=== PATIENT | female | born 2000 | race Caucasian/White ===

== ENCOUNTER 2022-08-07 06:43 | Emergency (ER) | payer OTHER, SELFPAY ==
[2022-08-07 06:55] VITALS: BP 155/84; PULSE 120; RESP 20; TEMP 37.3; O2SAT 96
--- NOTE | 2022-08-07 07:38 | ECG_ITS ---
Measurements Intervals [place] Rate: 124 P: 10 WA: 156 QRS: 9 QRSD: 90 T: 113 QT: 336 QTc: 484 Interpretive Statements SINUS TACHYCARDIA BORDERLINE ST-T WAVE ABNORMALITY- ANTEROLAT/HIGH LAT LEADS ABNORMAL ECG NO PREVIOUS ECG AVAILABLE FOR COMPARISON Electronically Signed On 08-07-2022 22:51:53 [employer]ITAL [employer] by Tomy Azul D.O.
--- NOTE | 2022-08-07 08:50 | ED.ARRPALP ---
HPI - Arrhythmia/Palpitations General Chief Complaint: Arrhythmia/Palpitations Stated Complaint: palpitations Time Seen by Provider: 08/07/22 08:39 History of Present Illness HPI narrative: Pt presents with intermittent palpitations and feeling like her heart is racing since las night. Pt has history of anxiety and has had similar issues in the past but worse last night. Pt off her anxiety meds because psychiatrist moved. Pt says has some intermittent chest aching that lasts a few seconds and resolves on own. Related Data Allergies Allergy/AdvReac Type Severity Reaction Status Date / Time No Known Allergies Allergy Unknown Unverified 01/26/21 08:13 tartar sauce Allergy Unknown Unknown Uncoded 01/26/21 08:13 Review of Systems Review of Systems: All systems reviewed & are unremarkable except as noted in HPI and below Exam Const: General: healthy appearing and no acute distress Nutritional Appearance: well nourished Orientation/consciousness: patient oriented x3 Limitations: no limitations HENMT: Head: normal to inspection Mouth: Yes Normal oral and palatal mucosa present Eyes: Conjunctivae: conjunctivae normal Neck: Neck: normal visual inspection and no lymphadenopathy Chest: Chest palpation & inspection: normal inspection of the chest Resp: Effort & Inspection: normal respiratory effort Auscultation: clear to auscultation bilaterally Cardio: Rate: tachycardic GI: Auscultation: normal bowel sounds Back/Spine/Pelvis: Back: no CVA tenderness Skin: General skin exam: normal color Rashes: no rashes Neuro: General: patient oriented x3 and moves all extremities Cranial nerves: Yes Nystagmus not present Speech: normal speech Extrem: General: normal to inspection Psych: Mental Status: mental status grossly normal Affect: normal affect Attitude: cooperative Course Vital Signs Vital signs: Vital Signs Temperature 99.1 F 08/07/22 06:55 Pulse Rate 120 H 08/07/22 06:55 Respiratory Rate 20 08/07/22 06:55 Blood Pressure 155/84 H 08/07/22 06:55 Pulse Oximetry 96 08/07/22 06:55 Oxygen Delivery Room Air 08/07/22 06:55 Temperature 99.1 F 08/07/22 06:55 Pulse Rate 98 08/07/22 12:28 Respiratory Rate 16 08/07/22 12:28 Blood Pressure 129/95 H 08/07/22 12:28 Pulse Oximetry 99 08/07/22 12:28 Oxygen Delivery Room Air 08/07/22 06:55 MDM - Arrhythmia/Palpitations Differential Diagnosis Differential diagnosis: Likely palpitations, anxiety and sinus tachycardia Medical Records Attestation: I reviewed the patient's medical records. Lab Data Attestation: I reviewed the patient's lab results. Result diagrams: 08/07/22 08:57 08/07/22 08:57 Labs: Lab Results 08/07/22 08/07/22 Range/Units 08:57 08:57 WBC 10.2 H (4.5-10.0) K/mm3 RBC 5.37 (4.2-5.4) M/mm3 Hgb 14.2 (12.0-15.0) g/dL Hct 43.2 (37.0-47.0) % MCV 80.4 (80-100) fl MCH 26.4 (26-34) pg MCHC 32.9 (32-36) g/dl RDW 13.3 (11.5-14.5) % Plt Count 368 (150-375) k/mm3 MPV 10.3 (7.4-10.4) fl Immature Gran % (Auto) 0.3 (0-0.5) % Neut % (Auto) 60.3 (45.5-73.1) % Lymph % (Auto) 31.0 (18.3-44.2) % [place] % (Auto) 6.3 (2.6-8.5) % Eos % (Auto) 1.4 (0-4.4) % Baso % (Auto) 0.7 (0.2-1.2) % Lymph # (Auto) 3.16 (0.9-3.2) K/mm3 [place] # (Auto) 0.6 (0.1-0.6) K/mm3 Eos # (Auto) 0.1 (0-0.3) K/mm3 Baso # (Auto) 0.1 (0.0-0.1) K/mm3 Abs Immat Gran (auto) 0.03 (0.00-0.031) K/mm3 Absolute Neuts (auto) 6.1 (1.3-6.7) K/mm3 Absolute Nucleated RBC 0.0 (0.0-0.012) K/mm3 Nucleated RBC % 0.0 (0.0-0.2) % Sodium 138 (137-145) mmol/L Potassium 3.8 (3.4-5.0) mmol/L Chloride 105 (98-107) mmol/L Carbon Dioxide 24 (22-30) mmol/L Anion Gap 9 (8-16) mmol/L BUN 8 (7-17) mg/dL Creatinine 0.70 (0.7-1.0) mg/dL Estim Creat Clear Calc 153 ml/min Estimated GFR > 60 (59 - ) Glucose 105 (65-110) mg/dL C
[2022-08-07 09:05] LABS: Basophils Absolute Auto 0.1 K/mm3 (0.0-0.1); Basophils Percent Auto 0.7 % (0.2-1.2); Eosinophils Absolute Auto 0.1 K/mm3 (0-0.3); Eosinophils Percent Auto 1.4 % (0-4.4); Hematocrit 43.2 % (37.0-47.0); Hemoglobin 14.2 g/dL (12.0-15.0); Immature Granulocyte Absolute 0.03 K/mm3 (0.00-0.031); Immature Granulocyte Percent A 0.3 % (0-0.5); Lymphocytes Absolute Auto 3.16 K/mm3 (0.9-3.2); Mean Corpuscular HGB Conc 32.9 g/dl (32-36); Mean Corpuscular Hemoglobin 26.4 pg (26-34); Mean Corpuscular Volume 80.4 fl (80-100); Mean Platelet Volume 10.3 fl (7.4-10.4); Monocytes Absolute Auto 0.6 K/mm3 (0.1-0.6); Monocytes Percent Auto 6.3 % (2.6-8.5); Neutrophils Absolute Auto 6.1 K/mm3 (1.3-6.7); Neutrophils Percent Auto 60.3 % (45.5-73.1); Platelet Count Result 368 k/mm3 (150-375); Red Blood Count 5.37 M/mm3 (4.2-5.4); Red Cell Distribution Width 13.3 % (11.5-14.5); White Blood Count 10.2 K/mm3 (4.5-10.0)
[2022-08-07 09:16] LABS: Alanine Aminotransferase 63 U/L (6-35); Albumin Level 4.5 g/dL (3.5-5.1); Alkaline Phosphatase 125 U/L (38-126); Anion Gap 9 mmol/L (8-16); Aspartate Amino Transferase 36 U/L (14-36); Bilirubin,Total 0.3 mg/dL (0.2-1.3); Blood Urea Nitrogen 8 mg/dL (7-17); Calcium 8.8 mg/dL (8.4-10.2); Carbon Dioxide 24 mmol/L (22-30); Chloride 105 mmol/L (98-107); Estimated CRCL calculation 153 ml/min; Estimated Glomerular Filt Rate > 60; Glucose 105 mg/dL (65-110); Potassium 3.8 mmol/L (3.4-5.0); Sodium 138 mmol/L (137-145)
[2022-08-07 09:28] LABS: Troponin I < 0.012 ng/mL (0.000-0.034)
[2022-08-07 09:56] VITALS: BP 145/86; PULSE 105; RESP 20; O2SAT 99
[2022-08-07 12:28] VITALS: BP 129/95; PULSE 98; RESP 16; O2SAT 99
== END 2022-08-07 12:28 | disposition home or self-care (01) ==
PROVIDERS: Emergency Provider Emergency Medicine; PCP Family Medicine
DX: R00.2 Palpitations (principal); F41.9 Anxiety disorder, unspecified; R00.0 Tachycardia, unspecified
CPT/HCPCS: 36415; 80053; 84443; 84484; 85025; 93005; 99284

== ENCOUNTER 2023-01-13 10:01 | Emergency (ER) | payer OTHER, SELFPAY ==
[2023-01-13] VITALS (12 sets, daily range): BP systolic 112–142; BP diastolic 86–104; PULSE 93–106; RESP 16–22; TEMP 36.3; O2SAT 98–100
--- NOTE | ~2023-01-13 | XR_ITS ---
EXAMINATION: XR chest 2V DATE: 01/13/2023 11:22 INDICATION: Chest pain. TECHNIQUE: Frontal and lateral views of the chest were obtained. COMPARISON: None. FINDINGS: There is no pneumonia, pleural effusion, or pneumothorax. The heart size is normal. IMPRESSION: 1. No acute cardiopulmonary disease. Reviewed, dictated and finalized at location A.
--- NOTE | 2023-01-13 10:30 | ECG_ITS ---
Measurements Intervals [place] Rate: 93 P: 27 PA: 150 QRS: 25 QRSD: 92 T: -5 QT: 356 QTc: 443 Interpretive Statements SINUS RHYTHM CONSIDER INFERIOR INFARCT, AGE INDETERMINATE NONSPECIFIC T-WAVE ABNORMALITY- ANTERIOR LEADS ABNORMAL ECG COMPARED TO ECG 08/07/2022 06:49:16 SINUS RHYTHM NOW PRESENT Electronically Signed On 01-13-2023 12:57:58 CDT by Tomy Azul D.O.
[2023-01-13 10:56] LABS: Basophils Absolute Auto 0.1 K/mm3 (0.0-0.1); Basophils Percent Auto 0.7 % (0.2-1.2); Eosinophils Absolute Auto 0.2 K/mm3 (0-0.3); Eosinophils Percent Auto 1.9 % (0-4.4); Hematocrit 42.3 % (37.0-47.0); Hemoglobin 13.3 g/dL (12.0-15.0); Immature Granulocyte Absolute 0.04 K/mm3 (0.00-0.031); Immature Granulocyte Percent A 0.4 % (0-0.5); Lymphocytes Absolute Auto 3.04 K/mm3 (0.9-3.2); Lymphocytes Percent Auto 30.1 % (18.3-44.2); Mean Corpuscular HGB Conc 31.4 g/dl (32-36); Mean Corpuscular Hemoglobin 26.4 pg (26-34); Mean Corpuscular Volume 83.9 fl (80-100); Mean Platelet Volume 10.1 fl (7.4-10.4); Monocytes Absolute Auto 0.7 K/mm3 (0.1-0.6); Monocytes Percent Auto 6.9 % (2.6-8.5); Neutrophils Absolute Auto 6.1 K/mm3 (1.3-6.7); Platelet Count Result 328 k/mm3 (150-375); Red Blood Count 5.04 M/mm3 (4.2-5.4); Red Cell Distribution Width 13.3 % (11.5-14.5); White Blood Count 10.1 K/mm3 (4.5-10.0)
[2023-01-13] MEDS: KETOROLAC 30 MG/ML VIAL (*BKC) IV PUSH (11:04)
[2023-01-13 11:12] LABS: Alanine Aminotransferase 80 U/L (6-35); Albumin Level 4.2 g/dL (3.5-5.1); Alkaline Phosphatase 119 U/L (38-126); Anion Gap 7 mmol/L (8-16); Aspartate Amino Transferase 44 U/L (14-36); Bilirubin,Total 0.5 mg/dL (0.2-1.3); Blood Urea Nitrogen 8 mg/dL (7-17); Calcium 8.9 mg/dL (8.4-10.2); Carbon Dioxide 25 mmol/L (22-30); Chloride 105 mmol/L (98-107); Estimated CRCL calculation 181 ml/min; Estimated Glomerular Filt Rate > 60; Glucose 115 mg/dL (65-110); Potassium 3.8 mmol/L (3.4-5.0); Sodium 137 mmol/L (137-145)
[2023-01-13 11:18] LABS: Troponin I < 0.012 ng/mL (0.000-0.034)
[2023-01-13 11:21] LABS: Prothrombin Time 13.8 Seconds (11.1-14.7)
[2023-01-13 11:22] LABS: Partial Thromboplastin Time 30.3 SECONDS (22.3-36.8)
--- NOTE | 2023-01-13 11:56 | ED.GENADULT ---
HPI - General Adult General Chief complaint: Unspecified Stated complaint: think i have had a heart attack Time Seen by Provider: 01/13/23 10:06 History of Present Illness HPI narrative: Patient is a 22-year-old female presents ER with concerns for possible heart attack. Reports she has been having intermittent chest pain throughout her chest for the last 3 days. Pain can last 1 minute or up to 10 minutes. Its been on the right and left side of her chest. No aggravating or alleviating factors. No radiation. Denies runny nose or sore throat or productive cough. No known sick contacts. No GI symptoms. No history of OK. Reports father has history of heart attack to be on age. Related Data Allergies Allergy/AdvReac Type Severity Reaction Status Date / Time No Known Allergies Allergy Unknown Unverified 01/26/21 08:13 tartar sauce Allergy Unknown Unknown Uncoded 01/13/23 10:14 Review of Systems Review of Systems: All systems reviewed & are unremarkable except as noted in HPI and below Constitutional: Constitutional: Denies chills and Denies fever(s) Comments: insomnia Cardiovascular: Cardiovascular: Reports chest pain, Denies radiating jaw, neck or arm pain and Denies palpitations Respiratory: Respiratory: Denies cough, Denies hemoptysis and Denies dyspnea Gastrointestinal: Gastrointestinal: Denies abdominal pain, Denies diarrhea, Denies nausea and Denies vomiting PMFSH Past Medical History Medical History (Updated 01/13/23 @ 12:20 by Sahil Tucker MD) Anxiety Surgical History Surgical History (Updated 01/13/23 @ 12:20 by Sahil Tucker MD) No history of previous surgery Exam Narrative: GENERAL: Well-appearing, morbidly obese, and in no acute distress. HEAD: Normocephalic, atraumatic. EYES: PERRL and EOMI. ENT: Mucous membranes moist. CHEST: Clear to auscultation. No respiratory distress. HEART: Regular rate and rhythm. Normal peripheral pulses. ABDOMEN: Soft, nontender, nondistended. EXTREMITIES: Normal range of motion. No edema. SKIN: Warm, dry, no rash. NEURO: Alert and oriented x3. PSYCH: Normal mood and affect. Course Course Emergency Course: Patient resting comfortably. Informed of results. No evidence of myocardial ischemia. Patient with appropriate for follow-up with PCP Vital Signs Vital signs: Vital Signs Temperature 97.4 F L 01/13/23 10:15 Pulse Rate 97 01/13/23 10:15 Respiratory Rate 20 01/13/23 10:15 Blood Pressure 112/94 H 01/13/23 10:15 Pulse Oximetry 100 01/13/23 10:15 Temperature 97.4 F L 01/13/23 10:15 Pulse Rate 96 01/13/23 10:15 Respiratory Rate 20 01/13/23 10:15 Blood Pressure 112/94 H 01/13/23 10:15 Pulse Oximetry 100 01/13/23 10:15 Medical Decision Making Vital Signs Vital Signs: Vital Signs Temperature 97.4 F L 01/13/23 10:15 Pulse Rate 97 01/13/23 10:15 Respiratory Rate 20 01/13/23 10:15 Blood Pressure 112/94 H 01/13/23 10:15 Pulse Oximetry 100 01/13/23 10:15 Temperature 97.4 F L 01/13/23 10:15 Pulse Rate 96 01/13/23 10:15 Respiratory Rate 20 01/13/23 10:15 Blood Pressure 112/94 H 01/13/23 10:15 Pulse Oximetry 100 01/13/23 10:15 Lab Data 01/13/23 10:50 01/13/23 10:49 Labs: Lab Results 01/13/23 01/13/23 01/13/23 Range/Units 10:49 10:50 11:02 WBC 10.1 H (4.5-10.0) K/mm3 RBC 5.04 (4.2-5.4) M/mm3 Hgb 13.3 (12.0-15.0) g/dL Hct 42.3 (37.0-47.0) % MCV 83.9 (80-100) fl MCH 26.4 (26-34) pg MCHC 31.4 L (32-36) g/dl RDW 13.3 (11.5-14.5) % Plt Count 328 (150-375) k/mm3 MPV 10.1 (7.4-10.4) fl Immature Gran % (Auto) 0.4 (0-0.5) % Neut % (Auto) 60.0 (45.5-73.1) % Lymph % (Auto) 30.1 (18.3-44.2) % [place] % (Auto) 6.9 (2.6-8.5) % Eos % (Auto) 1.9 (0-4.4) % Baso % (Auto) 0.7 (0.2-1.2) % Lymph # (Auto) 3.04 (0.9-3.2) K/mm3 [place] # (Auto) 0.7 H
== END 2023-01-13 12:26 | disposition home or self-care (01) ==
PROVIDERS: Emergency Provider Emergency Medicine; PCP Family Medicine
DX: R07.89 Other chest pain (principal); R94.31 Abnormal electrocardiogram [ECG] [EKG]
CPT/HCPCS: 36415; 71046; 80053; 84484; 85025; 85610; 85730; 93005; 99284; J1885